=== PATIENT | male | born 1940 | race Asian ===

== ENCOUNTER 2016-10-01 18:44 | Emergency (ER) | payer MEDICARE ==
[~2016-10-01] VITALS: Ht 170.2 cm; Wt 60.0 kg
[2016-10-01 18:46] VITALS: BP 161/76; PULSE 76; RESP 17; TEMP 98.2; O2SAT 97
--- NOTE | 2016-10-01 21:54 | PD ---
HPI Chief Complaint: GI Complaint Time Seen by Provider: 21:50 Travel History International Travel<30 days: No Contact w/Intl Traveler<30days: No Traveled to known affect area: No History of Present Illness HPI 76-year-old male presents to the emergency department by private transportation for complaint of rectal pain and constipation. is at bedside. Patient speaks Cantonese. requests to be investigator welfare and patient requests were to be investigator welfare [employer] has been offered and they're considering this but in the meantime is offering history and transferring for the patient. No fever no vomiting no abdominal pain. Patient has had tenesmus. Patient has history of chronic constipation and typically has a bowel movement about every 3 days. Patient uses laxatives to assist with bowel movement issues. Patient did used to laxatives today without satisfactory bowel movement. Patient has not had a bowel movement 3 days. Patient has history of chronic constipation, Parkinson' s disease, hypothyroidism, and enlarged prostate. PFSH Past Medical History Narrative Medical Parkinson's, hypothyroidism, chronic constipation, BPH Social History Tobacco Use: No Allergies-Medications (Allergen,Severity, Reaction): Coded Allergies: No Known Allergies (Unverified , 10/01/16) Reported Meds & Prescriptions Reported Meds & Active Scripts Active Reported Dulcolax DR (Bisacodyl) 5 Mg Tabdr 1-3 Tab PO DAILY Carbidopa-Levodopa 10-100 Mg Tab 1 Tab PO BID Dutasteride 0.5 Mg Cap 0.5 Mg PO HS Levothyroxine (Levothyroxine Sodium) 25 Mcg Tab 25 Mcg PO DAILY Finasteride 5 Mg Tab 5 Mg PO DAILY Do not crush. Narrative Medication doesn't know meds except stool softeners Review of Systems Except as stated in HPI: all other systems reviewed are Neg General / Constitutional: No: Fever Cardiovascular: No: Chest Pain or Discomfort Respiratory: No: Shortness of Breath Gastrointestinal: Positive: Constipation, No: Vomiting, Diarrhea, Abdominal Pain Genitourinary: No: Decreased Urinary Output Musculoskeletal: No: Pain Skin: No Rash Neurologic: No: Weakness Psychiatric: Positive: Anxiety Hematologic/Lymphatic: No: Lymph Node Enlargement Physical Exam Narrative GENERAL: Well-developed thin male in no acute distress no respiratory distress with tremor SKIN: Warm and dry. HEAD: Normocephalic. EYES: No scleral icterus. No injection or drainage. NECK: Supple, trachea midline. No JVD or lymphadenopathy. CARDIOVASCULAR: Regular rate and rhythm without murmurs, gallops, or rubs. RESPIRATORY: Breath sounds equal bilaterally. No accessory muscle use. GASTROINTESTINAL: Abdomen soft, non-tender, nondistended. Rectal exam: No fissure no prolapsed hemorrhoids normal sphincter tone large bolus of stool in the rectal vault that is partially digitally disimpacted. MUSCULOSKELETAL: No cyanosis, or edema. BACK: Nontender without obvious deformity. No CVA tenderness. Data Data Last Documented VS Orders Abdomen, Flat & Upright (10/01/16 ) Bisacodyl Supp (Dulcolax Supp) (10/01/16 22:00) Magnesium Citrate Liq (Citroma Liq) (10/02/16 00:15) [facility] Medical Decision Making Medical Screen Exam Complete: Yes Emergency Medical Condition: Yes Medical Record Reviewed: Yes Interpretation(s) Last Impressions Abdomen X-Ray 10/01/16 0000 Signed Impressions: Service Date/Time: Saturday, October 01, 2016 23:24 - CONCLUSION: No dilated loops of small or large bowel. Josh Vee MD Differential Diagnosis Chronic constipation, obstipation, GI bleed Narrative Course [employer]atus offered to patient and spouse but unable to use comfortably and patient and spouse decided to decline a/v investigator welfare With digital disimpaction patient with some relief of symptoms; abdominal flat and upright x-ray ordered; Dulcolax suppository ordered with that side commode Additional digital disimpaction performed with good response patient also administered one half bottle of magnesium citrate imaging study shows no evidence of bowel obstruction and no subdiaphragmatic free air; patient stable for outpatient management and encouraged to add MiraLAX and physical activity to his bowel regimen [facility] Internal Pos. & Neg. Controls: Passed Fecal Specimen Occult Blood: Positive (trace) Diagnosis Primary Impression: Constipation by delayed colonic transit Referrals: [facility] call for appointment Primary Care Physician 2 days Patient Instructions: General Instructions Additional Instructions: Increase fluid hydration Add MiraLAX to current bowel regimen May use magnesium citrate as needed up to 2 times a week over the next 2 weeks Increase physical activity Take acetaminophen as needed for fever 100.4F or greater Return to the emergency department for pain fever vomiting or any concerns Med/Other Pt SpecificInfo: No Change to Meds Disposition: DISCHARGE HOME Condition: Stable Inna Cool MD Oct 01, 2016 21:54
[2016-10-01] MEDS ORDERED: BISACODYL 10 MG SUPP RECTAL ONE (22:00)
--- NOTE | 2016-10-01 23:40 | RADRPT ---
EXAM DATE/TIME: 10/01/2016 23:24 [facility] COMPARISON: No previous studies available for comparison. INDICATIONS : Constipation. MEDICAL HISTORY : None. SURGICAL HISTORY : None. ENCOUNTER: Initial ACUITY: 2 days PAIN SCORE: Non-responsive. LOCATION: abdomen, all quadrants. FINDINGS: There is some blurring of the images due to patient motion. The visualized lower lungs are clear. N o dilated loops of small or large bowel. Osseous structures are grossly intact. No suspicious calci fications. CONCLUSION: No dilated loops of small or large bowel. Josh Vee MD on October 01, 2016 at 23:38 Board Certified Radiologist. This report was verified electronically.
[2016-10-02] MEDS ORDERED: MAGNESIUM CITRATE SOLN 300 ML BTL PO ONE (00:15)
[2016-10-02] MEDS ORDERED: LEVO25TA4 PO (00:26)
[2016-10-02] MEDS ORDERED: Dulcolax PO (00:26)
[2016-10-02] MEDS ORDERED: DUTA1CAP2 PO (00:26)
[2016-10-02] MEDS ORDERED: FINA5TAB2 PO (00:26)
[2016-10-02] MEDS ORDERED: CARB10TA2 PO (00:26)
[2016-10-02 01:19] VITALS: BP 112/62; PULSE 72; RESP 18; TEMP 98.4; O2SAT 98
[2016-10-03] MEDS ORDERED: DULC5TAB PO (08:55)
== END 2016-10-02 01:35 | disposition home or self-care (01) ==
LOC: NEPC 18:44
DX: K59.01 Slow transit constipation (principal); N40.0 Benign prostatic hyperplasia without lower urinary tract symptoms; G20 Parkinson's disease; E03.9 Hypothyroidism, unspecified
CPT/HCPCS: 74020; 99283